=== PATIENT | female | born 1990 | race Two or more races ===

== ENCOUNTER → 2018-09-05 | Outpatient (CLI) | payer OTHER ==
[~2018-09-05] MED LIST: No meds per pt.
== END | disposition home or self-care (01) ==
LOC: STAR 14:36
PROVIDERS: ATTEND Surgery
DX: Z02.9 Encounter for administrative examinations, unspecified (principal)

== ENCOUNTER 2020-12-07 05:31 | Emergency (ER) | payer OTHER ==
[~2020-12-07] VITALS: Ht 160 cm; Wt 97.9 kg
[2020-12-07 06:10] LABS: BASOPHILS % (AUTO) 1 % (0-1); EOSINOPHILS % (AUTO) 1 % (1-7); LYMPHOCYTES % (AUTO) 30 % (22-44); MEAN CORPUSCULAR HGB CONC 34.3 g/dL (32.4-35.8); MEAN PLATELET VOLUME 7.6 fL (7.4-10.4); MONOCYTES % (AUTO) 5 % (2-9); NEUTROPHILS % (AUTO) 64 % (42-75); PLATELET COUNT 497 x10^3/uL (130-400); RED BLOOD COUNT 4.54 x10^6/uL (3.82-5.3); RED CELL DISTRIBUTION WIDTH 13.2 % (9.6-15.2)
[2020-12-07 06:15] LABS: MD NO
[2020-12-07 06:17] LABS: ANION GAP 8 mmol/L (5-15); CALCIUM 8.9 mg/dL (8.5-10.1); CHLORIDE 107 mmol/L (98-107); CREATININE 0.61 mg/dL (0.55-1.02)
[2020-12-07 06:18] LABS: ALANINE AMINOTRANSFERASE 40 U/L (12-78); ALBUMIN 3.7 g/dL (3.4-5.0)
--- NOTE | 2020-12-07 06:23 | NUR ---
PT AMBULATED TO RESTROOM WITHOUT DIFFICULTY, PT HAS UNLABORED EQUAL BREATHS AND IS A/O X4 WITH PT FAMILY AT BEDSIDE.
[2020-12-07 06:34] LABS: ALKALINE PHOSPHATASE 45 U/L (45-117); BILIRUBIN,TOTAL 0.5 mg/dL (0.2-1.0); TOTAL PROTEIN 7.1 g/dL (6.4-8.2)
--- NOTE | 2020-12-07 06:45 | NUR ---
Report received from LAQUITA Quintero and care orin. Noted pt leaving for [place] via [employer] with [employer] at this time.
--- NOTE | 2020-12-07 07:00 | NUR ---
Pt returned to room from [place] without acute change while off unit.
--- NOTE | 2020-12-07 07:45 | NUR ---
VS reassessed, chart up for MD to review and awaiting MD discussion with pt on plan of care/findings. Pt states she is , no cramping currently and 0/10 pain. Hug offered and pt accepted and started crying. Verbal comfort provided and significant other at bedside to continue physical comfort measures. Call in reach.
[2020-12-07 07:48] VITALS: BP 116/71
== END 2020-12-07 08:03 | disposition home or self-care (01) ==
LOC: ED 07:50
DX: O03.9 Complete or unspecified spontaneous abortion without complication (principal); O02.0 Blighted ovum and nonhydatidiform mole; Z3A.01 Less than 8 weeks gestation of pregnancy; Z90.49 Acquired absence of other specified parts of digestive tract
CPT/HCPCS: 36415; 76801; 80053; 84702; 85025; 86901; 99284

== ENCOUNTER 2020-12-07 12:17 | Emergency (ER) | payer OTHER ==
[~2020-12-07] VITALS: Ht 160 cm; Wt 97.0 kg
[2020-12-07 13:23] LABS: BASOPHILS % (AUTO) 1 % (0-1); EOSINOPHILS % (AUTO) 0 % (1-7); LYMPHOCYTES % (AUTO) 17 % (22-44); MEAN CORPUSCULAR HEMOGLOBIN 30.9 pg (27.0-34.8); MEAN CORPUSCULAR HGB CONC 34.4 g/dL (32.4-35.8); MEAN PLATELET VOLUME 7.7 fL (7.4-10.4); MONOCYTES % (AUTO) 4 % (2-9); NEUTROPHILS % (AUTO) 77 % (42-75); PLATELET COUNT 480 x10^3/uL (130-400); RED BLOOD COUNT 4.41 x10^6/uL (3.82-5.3); RED CELL DISTRIBUTION WIDTH 13.3 % (9.6-15.2)
[2020-12-07 13:25] LABS: MD NO
--- NOTE | 2020-12-07 13:30 | NUR ---
PT BACK IN ER FOR VB, HAS CONTENTS FROM MISCARRIAGE IN CONTAINER. PT DENIES CP, DIZZINES OR N/V.
[2020-12-07 14:28] VITALS: BP 115/76
--- NOTE | 2020-12-07 14:34 | NUR ---
BREAK RN: V/S UPDATED. PT APPROPRIATE. PT AND PTS UPDATED ON POC. IE:ERMD WAITING FOR [employer] CALL BACK. NO NEEDS EXPRESSED AT THIS TIME. REPORT TO CAITLIN COELHO.
== END 2020-12-07 15:04 | disposition home or self-care (01) ==
LOC: ED 12:35
DX: O03.9 Complete or unspecified spontaneous abortion without complication (principal); R10.9 Unspecified abdominal pain
CPT/HCPCS: 36415; 85025; 99283